=== PATIENT | female | born 1970 | race Caucasian/White ===

== ENCOUNTER 2016-04-07 11:21 | Emergency (ER) | payer BC ==
[2016-04-07] MEDS ORDERED: diphenhydrAMINE HCl 50 MG/ML 1 ML VIAL ONE (12:59)
[2016-04-07] MEDS ORDERED: Prochlorperazine 10 MG/2 ML VIAL ONE (12:59)
[2016-04-07] MEDS ORDERED: Ketorolac Tromethamine 30 MG/ML VIAL ONE (12:59)
[2016-04-07] MEDS ORDERED: methylPREDNISolone Sod Succ/PF 125 MG/2 ML VIAL ONE (13:00)
[2016-04-07] MEDS ORDERED: Sodium Chloride 0.9% 1,000 ML ONE (13:00)
[2016-04-07 13:37] LABS: #Basophils 0.1 thou/uL (0.0-0.2); #Eosinphils 0.1 thou/uL (0.0-0.7); #Lymphocytes 2.1 thou/uL (1.20-3.40); #Monocytes 0.5 thou/uL (0.11-0.59); %Basophils 0.9 % (0.0-1.0); %Eosinophils 0.7 % (0.0-10.0); %Lymphocytes 27.3 % (21.0-51.0); %Monocytes 6.5 % (0.0-10.0); Mean Platelet Volume 8.8 fL (7.4-10.4); Red Blood Cell (RBC) Count 4.64 mill/uL (4.20-5.40); White Blood Cell (WBC) Count 7.8 thou/uL (4.8-10.8)
[2016-04-07 13:41] LABS: ALT (SGPT) 25 U/L (0-55); AST (SGOT) 24 U/L (5-34); Alkaline Phosphatase 73 U/L (40-150); Anion Gap 14 mmol/L (10-20); BUN (Urea Nitrogen) 10 mg/dL (7.0-18.7); Bilirubin, Total 0.3 mg/dL (0.2-1.2); Calc. Creatinine Clearance 0 mL/min (70-130); Calcium 9.5 mg/dL (7.8-10.44); Carbon Dioxide 25 mmol/L (22-29); Chloride 107 mmol/L (98-107); Estimated GFR-MDRD 81; Globulin 3.3 g/dL (2.4-3.5); Protein, Total 7.8 g/dL (6.0-8.3)
[2016-04-07] MEDS ORDERED: Lorazepam 2 MG/ML VIAL ONE (14:16)
[2016-04-07] MEDS ORDERED: Acetaminophen 500 MG TAB ONE (14:17)
--- NOTE | 2016-04-07 15:47 | PICIS ---
[facility] EMERGENCY RECORD TRIAGE (ThuApr 07, 2016 12:22 DGRI) TRIAGE NOTES: C/O migraine headache for the past 1 1/2 weeks. States that she had an anxiety attack which lead to the headache. (ThuApr 07, 2016 12:22 DGRI) PATIENT: NAME: Sofi Collazo, AGE: 46, GENDER: female, : Thu1970, TIME OF GREET: ThuApr 07, 2016 11:22, PREFERRED LANGUAGE: [place], ETHNICITY: Not or , ECODE BILLING MAP: [facility], SSN: [id number], Zip Code: [address], KG WEIGHT: 61.23, PHONE: , , , PERSON ID: [id number], PCP: Dr. Gabriele Hewitt. (ThuApr 07, 2016 12:22 DGRI) COMPLAINT: MIGRAINE. (ThuApr 07, 2016 12:22 DGRI) ADMISSION: URGENCY: 4 Non Urgent, ADMISSION SOURCE: Home, TRANSPORT: CAR, BED: TRIAGE. (ThuApr 07, 2016 12:22 DGRI) LMP: LMP: Hysterectomy. (12:28 MSPE) TREATMENTS IN PROGRESS: Treatments given Prehospital: Excedrin Migraine yesterday; no meds today. (12:28 MSPE) PROVIDERS: TRIAGE NURSE: Chaparrita Del Toro RN. (ThuApr 07, 2016 12:22 DGRI) VITAL SIGNS: BP 156/79, (Lying), Pulse 91, (Regular), Resp 16, (Non-Labored), Temp 98.4, (Oral), Pain 10, Time 04/07/2016 12:18. (12:18 DGRI) KNOWN ALLERGIES morphine: Reaction: Nausea, Source: Patient CURRENT MEDICATIONS (12:27 MSPE) None VITAL SIGNS VITAL SIGNS: BP: 156/79 (Lying), Pulse: 91 (Regular), Resp: 16 (Non-Labored), Temp: 98.4 (Oral), Pain: 10, Time: 04/07/2016 12:18. (12:18 DGRI) BP: 121/84, Pulse: 89, Resp: 16, Pain: 10, O2 sat: 99 on Room Air, Time: 04/07/2016 13:25. (13:25 MSPE) BP: 102/66, Pulse: 77, Resp: 15, Pain: 8, O2 sat: 97 on Room Air, Time: 04/07/2016 14:01. (14:01 MSPE) BP: 111/78, Pulse: 72, Resp: 15, O2 sat: 98 on Room Air, Time: 04/07/2016 14:30. (14:30 MSPE) BP: 105/70, Pulse: 73, Resp: 16, O2 sat: 96 on Room Air, Time: 04/07/2016 15:00. (15:00 MSPE) NURSING ASSESSMENT: HEADACHE (12:29 MSPE) CONSTITUTIONAL: Patient arrives ambulatory, Gait steady, History obtained from patient, Patient appears, in distress due to pain, Patient cooperative, Patient alert, Oriented to person, place and time, Skin warm, Skin dry. PAIN: throbbing pain, sts pain started on right side, now on left side. "It shifts"., Onset of pain 03/26/2016, constant, Eases at times but never goes away. &a-1R&a+25V*p+0X*u5405X*c202B*c15G*c2P*p-0X&a-25V&a+1R Name: Sofi Collazo : 1970 F46 MedRec: [id number] AcctNum: [id number] Prepared: ThuApr 07, 2016 19:32 by Interface Page 1 of 10 pMD [facility] EMERGENCY RECORD HEADACHE: history of migraines, Associated with vomiting, Associated with photophobia, Associated with phonophobia. NEURO: GCS:, Eye opening: (4) - Spontaneous, Verbal: (5) - Oriented/conversive, Motor: (6) - Obeys commands/Spontaneous, GCS Total: 15. NURSING PROCEDURE: DISCHARGE NOTE (15:32 MSPE) DISCHARGE: Patient discharged to home, ambulating without assistance, family driving, accompanied by //partner, Summary of Care printed/ provided, Discharge instructions given to patient, Simple or moderate discharge teaching performed, Prescriptions given and instructions on side effects given, Above person(s) verbalized understanding of discharge instructions and follow-up care, Patient treated and evaluated by physician. BELONGINGS: Belongings remain with patient. NURSING PROCEDURE: IV IV SITE 1: IV therapy indicated for hydration, IV therapy indicated for medication administration, IV established, to the right hand, using a 22 gauge catheter, in one attempt, IV site prepped with chloraprep, Saline lock established, Flushed with normal saline (mls): 10. (13:10 MSPE) FOLLOW-UP SITE 1: After procedure, 2x2 dressing applied, IV discontinued, due to patient being discharged, catheter intact. (15:30 MSPE) NURSING PROCEDURE: NURSE NOTES NURSES NOTES: Notes: Pt sts SEVILLA easing a little; IV fluid infusing well per IV pump. Second warm blanket given to pt. Awaiting remainder of test results and dispo. (14:03 MSPE) Notes: Dr Flores back in to talk with pt; New med order noted. (14:10 MSPE) ORDER DETAILS Order Name: Basic Metabolic Panel, Status: Active, Time: 12:51 04/07/2016, User: WILFREDO, - Ordered for: MD Flores Andrea, - Entered by: MD Flores Andrea - [facility] Apr 07, 2016 12:51, - Quantity: 1, Order Name: CBC with Differential, Status: Active, Time: 13:13 04/07/2016, User: MONALISA, - Ordered for: MD Flores Andrea, - Entered by: ROSA MARIA Jones, [facility] - [facility] Apr 07, 2016 13:13, - Quantity: 1, Order Name: Comprehensive Metabolic Panel, Status: Active, Time: 12:51 04/07/2016, User: WILFREDO, - Ordered for: MD Flores Andrea, - Entered by: MD Flores Andrea - [facility] Apr 07, 2016 12:51, &a-1R&a+25V*p+0X*n0467U*c202B*c15G*c2P*p-0X&a-25V&a+1R Name: Hieufelisha Sofi M : 1970 F46 MedRec: [id number] AcctNum: [id number] Prepared: ThuApr 07, 2016 19:32 by Interface Page 2 of 10 pMD [facility] EMERGENCY RECORD - Quantity: 1, Order Name: CRP (Inflamatory), Status: Active, Time: 12:51 04/07/2016, User: WILFREDO, - Ordered for: MD Flores Andrea, - Entered by: MD Flores Andrea - ThuApr 07, 2016 12:51, - Quantity: 1, Order Name: RBC Sedimentation Rate (ESR), Status: Active, Time: 12:51 04/07/2016, User: WILFREDO, - Ordered for: MD Flores Andrea, - Entered by: MD Flores Andrea - ThuApr 07, 2016 12:51, - Quantity: 1, Order Name: SALINE LOCK, Status: Done, Time: 13:13 04/07/2016, User: MONALISA, - Ordered for: MD Flores Andrea, - Entered by: MD Flores Andrea - ThuApr 07, 2016 12:51, - Quantity: 1. MEDICATION ADMINISTRATION SUMMARY Drug Name: LORazepam injection, Dose Ordered: 2 mg, Route: IV Push, Status: Given, Time: 14:22 04/07/2016, Drug Name: Tylenol Extra Strength, Dose Ordered: 1 g, Route: Oral, Status: Given, Time: 14:20 04/07/2016, Drug Name: prochlorperazine Edisylate, Dose Ordered: 10 mg, Route: IV Push, Status: Given, Time: 13:32 04/07/2016, Drug Name: methylPREDNISolone sodium succ injection, Dose Ordered: 125 mg, Route: IV Push, Status: Given, Time: 13:23 04/07/2016, Drug Name: ketorolac injection, Dose Ordered: 30 mg, Route: IV Push, Status: Given, Time: 13:19 04/07/2016, Drug Name: diphenhydrAMINE injection, Dose Ordered: 25 mg, Route: IV Push, Status: Given, Time: 13:16 04/07/2016, Drug Name: sodium chloride 0.9 % intravenous, Dose Ordered: 1 L, Route: IV Fluid Infusion, Status: Given, Time: 13:10 04/07/2016, Detailed record available in Medication Service section. MEDICATION SERVICE diphenhydrAMINE injection: Order: diphenhydrAMINE injection (diphenhydramine HCl) - Dose: 25 mg : IV Push Ordered by: Alexx Flores MD Entered by: Alexx Flores MD ThuApr 07, 2016 12:52 , Acknowledged by: Bhumika Jones RN ThuApr 07, 2016 13:01 Documented as given by: Bhumika Jones RN ThuApr 07, 2016 13:16 Patient, Medication, Dose, Route and Time verified prior to administration. Amount given: 25mg, IV SITE #1 IVP, initial medication, Slowly, Awake and alert- acceptable, Connections checked prior to administration, Line traced prior to administration, Catheter placement confirmed via flush prior to administration, IV site without signs or symptoms of infiltration during medication administration, No swelling during administration, No drainage during &a-1R&a+25V*p+0X*d0198Z*c202B*c15G*c2P*p-0X&a-25V&a+1R Name: Sofi Collazo : 1970 F46 MedRec: [id number] AcctNum: [id number] Prepared: ThuApr 07, 2016 19:32 by Interface Page 3 of 10 pMD [facility] EMERGENCY RECORD administration, IV flushed after administration, Correct patient, time, route, dose and medication confirmed prior to administration, Patient advised of actions and side-effects prior to administration, Allergies confirmed and medications reviewed prior to administration, Patient in position of comfort, Side rails up, Cart in lowest position. ketorolac injection: Order: ketorolac injection (ketorolac tromethamine) - Dose: 30 mg : IV Push Ordered by: Alexx Flores MD Entered by: Alexx Flores MD ThuApr 07, 2016 12:52 , Acknowledged by: Bhumika Jones RN ThuApr 07, 2016 13:01 Documented as given by: Bhumika Jones RN ThuApr 07, 2016 13:19 Patient, Medication, Dose, Route and Time verified prior to administration. Amount given: 30mg, IV SITE #1 IVP, subsequent different medication, Slowly, Awake and alert- acceptable, Connections checked prior to administration, Line traced prior to administration, Catheter placement confirmed via flush prior to administration, IV site without signs or symptoms of infiltration during medication administration, No swelling during administration, No drainage during administration, IV flushed after administration, Correct patient, time, route, dose and medication confirmed prior to administration, Patient advised of actions and side-effects prior to administration, Allergies confirmed and medications reviewed prior to administration, Patient in position of comfort, Side rails up, Cart in lowest position. LORazepam injection: Order: LORazepam injection (lorazepam) - Dose: 2 mg : IV Push Ordered by: Alexx Flores MD Entered by: Alexx Flores MD ThuApr 07, 2016 14:11 , Acknowledged by: Bhumika Jones RN ThuApr 07, 2016 14:15 Documented as given by: Bhumika Jones RN ThuApr 07, 2016 14:22 Patient, Medication, Dose, Route and Time verified prior to administration. Amount given: 1mg, Amount wasted: 1mg, IV SITE #1 IVP, subsequent different medication, Slowly, Awake and alert- acceptable, Connections checked prior to administration, Line traced prior to administration, Catheter placement confirmed via flush prior to administration, IV site without signs or symptoms of infiltration during medication administration, No swelling during administration, No drainage during administration, IV flushed after administration, Correct patient, time, route, dose and medication confirmed prior to administration, Patient advised of actions and side-effects prior to administration, Allergies confirmed and medications reviewed prior to administration, Patient in position of comfort, Side rails up, Cart in lowest position, Call light in reach. methylPREDNISolone sodium succ injection: Order: methylPREDNISolone sodium succ injection (methylprednisolone sod succ) - Dose: 125 mg : IV Push Ordered by: Alexx Flores MD &a-1R&a+25V*p+0X*i5014V*c202B*c15G*c2P*p-0X&a-25V&a+1R Name: Sofi Collazo : 1970 F46 MedRec: [id number] AcctNum: [id number] Prepared: ThuApr 07, 2016 19:32 by Interface Page 4 of 10 pMD [facility] EMERGENCY RECORD Entered by: Alexx Flores MD ThuApr 07, 2016 12:52 , Acknowledged by: Bhumiak Jones RN ThuApr 07, 2016 13:01 Documented as given by: Bhumika Jones RN ThuApr 07, 2016 13:23 Patient, Medication, Dose, Route and Time verified prior to administration. Amount given: 125mg, IV SITE #1 IVP, subsequent different medication, Slowly, Awake and alert- acceptable, Connections checked prior to administration, Line traced prior to administration, Catheter placement confirmed via flush prior to administration, IV site without signs or symptoms of infiltration during medication administration, No swelling during administration, No drainage during administration, IV flushed after administration, Correct patient, time, route, dose and medication confirmed prior to administration, Patient advised of actions and side-effects prior to administration, Allergies confirmed and medications reviewed prior to administration, Patient in position of comfort, Side rails up, Cart in lowest position. prochlorperazine Edisylate: Order: prochlorperazine Edisylate (prochlorperazine edisylate) - Dose: 10 mg : IV Push Ordered by: Alexx Flores MD Entered by: Alexx Flores MD ThuApr 07, 2016 12:52 , Acknowledged by: Bhumika Jones RN ThuApr 07, 2016 13:01 Documented as given by: Bhumika Jones RN ThuApr 07, 2016 13:32 Patient, Medication, Dose, Route and Time verified prior to administration. Amount given: 10mg, IV SITE #1 IVP, subsequent different medication, Slowly, Awake and alert- acceptable, Connections checked prior to administration, Line traced prior to administration, Catheter placement confirmed via flush prior to administration, IV site without signs or symptoms of infiltration during medication administration, No swelling during administration, No drainage during administration, IV flushed after administration, Correct patient, time, route, dose and medication confirmed prior to administration, Patient advised of actions and side-effects prior to administration, Allergies confirmed and medications reviewed prior to administration, Patient in position of comfort, Side rails up, Cart in lowest position, Call light in reach. sodium chloride 0.9 % intravenous: Order: sodium chloride 0.9 % intravenous (0.9 % sodium chloride) - Dose: 1 L : IV Fluid Infusion Ordered by: Alexx Flores MD Entered by: Alexx Flores MD ThuApr 07, 2016 12:52 , Acknowledged by: Bhumika Jones RN ThuApr 07, 2016 13:01 Documented as given by: Bhumika Jones RN ThuApr 07, 2016 13:10 Patient, Medication, Dose, Route and Time verified prior to administration. Amount given: 1000ml, IV SITE #1 IV fluids established for hydration, IV SITE #1 1st bag hung, amount 1 Liter hung, IV SITE #1 bolus of 1000 ml established, IV SITE #1 Rate of bolus, 700, ml/hr, via primary tubing, IV SITE #1 on IV pump, Awake and alert- &a-1R&a+25V*p+0X*h3778X*c202B*c15G*c2P*p-0X&a-25V&a+1R Name: Sofi Collazo : 1970 F46 MedRec: [id number] AcctNum: [id number] Prepared: ThuApr 07, 2016 19:32 by Interface Page 5 of 10 pMD [facility] EMERGENCY RECORD acceptable, Connections checked prior to administration, Line traced prior to administration, Catheter placement confirmed via flush prior to administration, IV site without signs or symptoms of infiltration during medication administration, No swelling during administration, No drainage during administration, IV flushed after administration, Correct patient, time, route, dose and medication confirmed prior to administration, Patient advised of actions and side-effects prior to administration, Allergies confirmed and medications reviewed prior to administration, Patient in position of comfort, Side rails up, Cart in lowest position. : Follow Up : _IV SITE #1:_, IV fluid infusion discontinued, on ThuApr 07, 2016 14:39, Total fluid hydration time IV site 1 1 hour, 30 minutes, ., Total amount infused: 1000ml, IV Line flushed after administration. (14:39 MSPE) Tylenol Extra Strength: Order: Tylenol Extra Strength (acetaminophen) - Dose: 1 g : Oral Ordered by: Alexx Flores MD Entered by: Alexx Flores MD ThuApr 07, 2016 14:11 , Acknowledged by: Bhumika Jones RN ThuApr 07, 2016 14:15 Documented as given by: Bhumika Jones RN ThuApr 07, 2016 14:20 Patient, Medication, Dose, Route and Time verified prior to administration. Amount given: 1 gram, Site: Medication administered P.O., Patient appears Awake and alert- acceptable, Correct patient, time, route, dose and medication confirmed prior to administration, Patient advised of actions and side-effects prior to administration, Allergies confirmed and medications reviewed prior to administration, Patient in position of comfort, Side rails up, Cart in lowest position, Call light in reach. HPI HEADACHE (15:09 AGRE) CHIEF COMPLAINT: Patient presents for evaluation of headache, Patient presents for evaluation of migraine headache. HISTORIAN: History provided by patient, HX OF MIGRAINE HEADACHES THAT START WITH HER ANXIETY ATTACKS. HAD AN ANXIETY ATTACK 1.5 - 2 WEEKS AGO AND DEVELOPED PAIN IN THE RIGHT BACK OF HER NECK THAT SHOOTS OVER THE TOP OF HER HEAD. HAS PHOTOPHOBIA AND NAUSEA WHICH IS NOT UNCOMMON WITH HER MIGRAINE HEADACHES. NO URI SYMPTOMS, VISUAL CHANGES, FEVER OR CHILLS. DENIES RECENT HEAD TRAUMA. HAS BEEN TAKING OTC MIGRAIN MEDICATIONS BUT IT IS NOT HELPING. SAYS THE PAIN MIGRATES FROM THE BACK RIGHT NECK TO THE BACK LEFT NECK AND BACK AND FORTH. NO RECENT NECK INJURIES. NO WEAKNESS OR NUMBNESS. LOCATION: No localizing symptoms. QUALITY: Pain is dull in nature, described as aching, described as throbbing, Described as similar to previous episodes, BUT HAS NEVER LASTED THIS LONG. SAYS GETS HER HEADACHES ABOUT EVERY 4 MONTHS. SEVERITY: Maximum severity of symptoms severe, Currently symptoms are severe. TIME COURSE: Gradual onset of symptoms, There has been no change in the patient's &a-1R&a+25V*p+0X*p4968D*c202B*c15G*c2P*p-0X&a-25V&a+1R Name: Sofi Collazo : 1970 F46 MedRec: [id number] AcctNum: [id number] Prepared: ThuApr 07, 2016 19:32 by Interface Page 6 of 10 pMD [facility] EMERGENCY RECORD symptoms over time. ASSOCIATED WITH FEMALE: No associated chills, No associated fever, No associated focal weakness, Not associated with , Associated with neck pain, No associated syncope, No associated trauma, No associated tingling, No associated numbness, No associated upper respiratory infection, Denies any other complaints. EXACERBATED BY: Patient's condition exacerbated by eye opening, Patient's condition exacerbated by light. RELIEVED BY: Patient's condition relieved by nothing. ROS (15:13 AGRE) CONSTITUTIONAL: Historian denies chills, denies fever, denies lethargy, denies malaise. EYES: Historian denies eye pain, denies eye redness. ENT: Historian denies rhinorrhea, denies sinus pain, denies sore throat. CARDIOVASCULAR: Historian denies chest pain, denies dyspnea on exertion. RESPIRATORY: Historian denies cough, denies shortness of breath. GI: Historian denies abdominal pain, denies nausea, denies vomiting. MUSCULOSKELETAL: Historian denies back pain, denies neck pain. SKIN: Negative skin review of systems, Historian denies skin changes, denies skin lesions. NEUROLOGIC: Historian denies confusion, denies dizziness, denies dysphasia, denies focal weakness, denies gait changes, reports headache, denies lethargy, denies mental status changes, denies paralysis, denies paresthesias, denies seizures, denies sensory changes, denies speech changes. PSYCHIATRIC: Negative psychiatric review of systems, Historian denies anxiety. PAST MEDICAL HISTORY (12:28 MSPE) MEDICAL HISTORY: Flu vaccine not up to date, Tetanus not up to date, Pneumococcal vaccine not up to date, Past medical history includes history of malignancy, primary site ovarian, Past medical history includes neurological disease, migraine headaches. FEMALE SURGICAL HISTORY: Surgical history of cholecystectomy, Surgical history of hysterectomy. PSYCHIATRIC HISTORY: Psychiatric history includes, anxiety. SOCIAL HISTORY: Patient denies alcohol use, Patient denies drug use, Patient currently uses tobacco, smokes cigarettes, Patient smokes 1/2 packs per day. PHYSICAL EXAM (15:13 AGRE) CONSTITUTIONAL: Patient appears, in moderate pain distress, Vital Signs Reviewed, Patient afebrile, Patient &a-1R&a+25V*p+0X*o2299Y*c202B*c15G*c2P*p-0X&a-25V&a+1R Name: Sofi Collazo : 1970 F46 MedRec: [id number] AcctNum: [id number] Prepared: ThuApr 07, 2016 19:32 by Interface Page 7 of 10 pMD [facility] EMERGENCY RECORD appears non toxic, Patient alert and oriented to person, place and time, Nursing notes reviewed. HEAD: Head exam included findings of head atraumatic, normocephalic. EYES: Pupils equally round and reactive to light, no periorbital ecchymosis, no periorbital edema, no periorbital erythema, Eye exam included findings of eyelids normal to inspection, Extraocular muscles intact, Conjunctiva normal, Sclera normal. ENT: Ear exam normal, Nose exam normal, Mouth exam normal. NECK: Trachea midline, Thyroid normal, no carotid bruits, no cervical adenopathy, no abrasions, no contusions, no ecchymosis, Neck exam included findings of normal range of motion WITH TENDERNESS TO PALPATION OVER THE TRAPEZIUS MUSCULATURE BILATERALLY, NO SWELLING, BRUISING, DEFORMITY, no meningeal signs. RESPIRATORY CHEST: Respiratory and chest exam normal, Respiratory exam included findings of no respiratory distress, Breath sounds clear, No wheezing, No rales, No rhonchi, Breath sounds not diminished. CARDIOVASCULAR: Cardiovascular assessment normal, Cardiovascular exam included findings of heart rate regular rate and rhythm, Heart sounds normal, normal S1, normal S2, no murmurs, no rub, no gallop. ABDOMEN FEMALE: Abdominal exam normal, Abdominal exam included findings of abdomen nontender, Bowel sounds normal, Liver normal, Spleen normal, no distension, no mass, no pulsatile masses. BACK: Back exam included findings of normal inspection, range of motion normal. UPPER EXTREMITY: Upper extremity exam included findings of inspection normal, Range of motion normal. LOWER EXTREMITY: Lower extremity exam included findings of inspection normal, Range of motion normal. NEURO: Neuro exam normal, Israel coma scale 15, Neuro exam findings include patient oriented to person, place and time, Speech normal, Gait normal, Memory normal, Cranial nerves intact, Deep tendon reflexes normal, no focal motor deficits, no focal sensory deficits, no cerebellar deficits, no nystagmus. SKIN: Skin exam included findings of skin warm, dry, and normal in color. PSYCHIATRIC: Psychiatric exam normal, Normal affect. LAB INTERPRETATION (15:04 AGRE) INTERPRETATION: CBC normal, Chemistry normal, Liver functions normal, C-reactive protein is normal, SED RATE. EVENTS TRANSFER: Triage to Emergency Triage. (ThuApr 07, 2016 12:22 DGRI) Emergency Triage to Emergency Room -02. (12:25 MSPE) Removed from Emergency Emergency Room -02. (15:34 MSPE) O2SAT INTERPRETATION (15:15 AGRE) &a-1R&a+25V*p+0X*m0390X*c202B*c15G*c2P*p-0X&a-25V&a+1R Name: Sofi Collazo : 1970 F46 MedRec: [id number] AcctNum: [id number] Prepared: ThuApr 07, 2016 19:32 by Interface Page 8 of 10 pMD [facility] EMERGENCY RECORD O2SAT: Continuous pulse oximetry, Oxygen saturation 98%, on room air, Oxygen saturation interpretation: Normal, No intervention required. DOCTOR NOTES (15:15 AGRE) RE-EVALUATION: Routine re-evaluation, after administration of analgesics, The patient's condition has improved. TEXT: VS REMAINED STABLE AND NO NEURO CHANGES OBSERVED ON RE-EXAM. DISCUSSED WITH PATIENT FINDINGS ON EXAM, RESULTS OF HER ED TEST, MANAGEMENT OF HER PAIN, NEED FOR CLOSE FOLLOW UP. SHE EXPRESS UNDERSTANDING AND AGREEMENT. CAN GET AN APPOINTMENT WITH HER PHYSICIAN TOMORROW. PATIENT STATUS: Patient has improved since arrival to emergency department. PATIENT PLAN: The patient will be discharged. DATA REVIEWED: Lab data reviewed. PROBLEM LIST No recorded problems DIAGNOSIS (15:05 AGRE) FINAL: PRIMARY: TENSION HEADACHE. DISPOSITION PATIENT: Disposition Type: Discharge, Disposition: *Discharge Home, Condition: Improved. (15:05 AGRE) Patient left the department. (15:34 MSPE) INSTRUCTION (15:21 AGRE) DISCHARGE: CEPHALGIA TENSION HEADACHE. SPECIAL: TAKE MOTRIN 600 MG EVERY 6 HOURS, TYLENOL 650 MG EVERY 4 HOURS AND ROBAXIN EVERY 6 HOURS FOR INFLAMMATION AND PAIN. FOLLOW UP WITH YOUR PRIMARY CARE PHYSICIAN IF NOT BETTER IN 24 HOURS. SEE A PHYSICIAN SOONER IF WORSENING OR IF NEW SYMPTOMS DEVELOP. PRESCRIPTION (15:06 AGRE) Robaxin oral: TABLET : 500 mg : ORAL : Quantity: 2 Unit: tab(s) Route: ORAL Schedule: every 6 hours PRN Dispense: 40 May substitute. Refills: No Refills . NOTES: PRN MUSCLE SPASMS No Refills. IMAGING (15:33 MSPE) *DISCHARGE INSTRUCTIONS RECEIPT: Image captured from scanner. *SUPPLY CHARGE SHEET: Image captured from scanner. ADMIN DIGITAL SIGNATURE: MD Flores Andrea. (15:20 AGRE) MD Flores Andrea. (15:20 AGRE) MD Flores Andrea. (19:23 AGRE) &a-1R&a+25V*p+0X*d5232F*c202B*c15G*c2P*p-0X&a-25V&a+1R Name: Sofi Collazo : 1970 F46 MedRec: [id number] AcctNum: [id number] Prepared: ThuApr 07, 2016 19:32 by Interface Page 9 of 10 pMD [facility] EMERGENCY RECORD Cho: WILFREDO=MD Mark, Alexx PIÑA=ROSA MARIA Del Toro, Chaparrita SHELDON=ROSA MARIA Jones, Bhumika &a-1R&a+25V*p+0X*i9205P*c202B*c15G*c2P*p-0X&a-25V&a+1R Name: Vale Sofi M : 1970 F46 MedRec: [id number] AcctNum: [id number] Prepared: ThuApr 07, 2016 19:32 by Interface Page 10 of 10 pMD MTDD
== END 2016-04-07 15:32 | disposition home or self-care (01) ==
LOC: NAV ERS 11:21
DX: G44.209 Tension-type headache, unspecified, not intractable (principal); F41.9 Anxiety disorder, unspecified; F17.210 Nicotine dependence, cigarettes, uncomplicated
CPT/HCPCS: 36415; 80053; 85025; 85652; 86140; 96361; 96374; 96375; J0780; J1200; J1885; J2060; J2930; J7050